=== PATIENT | male | born 1975 | race Hispanic/Latino ===

== ENCOUNTER 2024-05-29 12:47 | Emergency (ER) | payer MEDICARE ==
[~2024-05-29] VITALS: Ht 182.9 cm; Wt 136.1 kg
[~2024-05-29 12:47] MED LIST: BROMFED DM COU118 ML PO; ONDANSETRON ODT4 MG PO; PAXLOVID 150-11 EAC1 PO
[2024-05-29] MEDS: FUROSEMIDE INJ 10 MG/ML 4 ML VIAL IV ONE (14:37)
[2024-05-29 14:58] VITALS: PULSE 68; RESP 16; TEMP 98.4; O2SAT 95
[2024-05-29] MEDS: FUROSEMIDE 40 MG TAB PO ONE (15:13)
[2024-05-29] MEDS: SOD POLYSTYRENE SULFONATE SUSP 15 GM/60 ML BTL PO ONE (15:44)
== END 2024-05-29 16:57 | disposition home or self-care (01) ==
LOC: FSED 12:55
DX: R60.9 Edema, unspecified (principal); K80.20 Calculus of gallbladder without cholecystitis without obstruction; E87.5 Hyperkalemia; I12.9 Hypertensive chronic kidney disease with stage 1 through stage 4 chronic kidney disease, or unspecified chronic kidney disease; E11.22 Type 2 diabetes mellitus with diabetic chronic kidney disease; N18.9 Chronic kidney disease, unspecified; E78.5 Hyperlipidemia, unspecified; M54.9 Dorsalgia, unspecified; G89.29 Other chronic pain; Z89.512 Acquired absence of left leg below knee; R94.31 Abnormal electrocardiogram [ECG] [EKG]
CPT/HCPCS: 71250; 80048; 80076; 81003; 82553; 83880; 84484; 85025; 99284; J1940

== ENCOUNTER 2024-06-13 11:10 | Inpatient (IN) | payer MEDICARE ==
[~2024-06-13] VITALS: Ht 182.9 cm; Wt 158.8 kg
[2024-06-13 12:14] LABS: BASOPHILS # (AUTO) 0.1 (0.0-0.1); BASOPHILS % 0.6 % (0.0-1.0); EOSINOPHILS # (AUTO) 0.2 (0.0-0.4); EOSINOPHILS % 2.2 % (0.0-6.0); LYMPHOCYTES # (AUTO) 1.2 (1.0-3.2); LYMPHOCYTES % 11.1 % (18.0-39.1); MEAN CORPUSCULAR HEMOGLOBIN 30.5 pg (28-32); MEAN CORPUSCULAR HGB CONC 29.6 g/dL (31-35); MEAN CORPUSCULAR VOLUME 103.1 fL (81-99); MONOCYTES # (AUTO) 0.8 (0.2-0.8); MONOCYTES % 7.9 % (4.4-11.3); NEUTROPHILS # (AUTO) 8.2 (2.1-6.9); NEUTROPHILS % 77.8 % (38.7-80.0); PLATELET COUNT 215 x10e3/uL (140-360); RED BLOOD COUNT 2.23 x10e6/uL (4.3-5.7); RED CELL DISTRIBUTION WIDTH 13.6 % (11.7-14.4)
[2024-06-13 12:22] LABS: HEMOGLOBIN 6.8 g/dL (14.0-18.0)
[2024-06-13 12:39] LABS: ALBUMIN 2.6 g/dL (3.5-5.0); ALBUMIN/GLOBULIN RATIO 0.6 (0.8-2.0); ANION GAP 15.9 mmol/L (8-16); BILIRUBIN,TOTAL 0.5 mg/dL (0.2-1.2); CALCIUM 8.3 mg/dL (8.4-10.2); CREATININE, SERUM 6.7 mg/dL (0.72-1.25); TOTAL PROTEIN 7.3 g/dL (6.5-8.1)
[2024-06-13 12:41] LABS: POTASSIUM 5.9 mmol/L (3.5-5.1)
[2024-06-13 12:46] LABS: TROPONIN I 0.016 ng/mL (0-0.300)
[2024-06-13] MEDS: DEXTROSE 50% SYRINGE 50 ML IV STA (13:10)
[2024-06-13] MEDS: SOD POLYSTYRENE SULFONATE SUSP 15 GM/60 ML BTL PO ONE (13:10)
[2024-06-13] MEDS: SODIUM BICARBONATE 8.4% INJ 50 ML SYR IV STA (13:10)
[2024-06-13] MEDS: INSULIN REGULAR, HUMAN 100 UNIT/1 ML IV ONE (13:12)
[2024-06-13 13:27] VITALS: PULSE 82; PULSE 87; RESP 16; RESP 18; TEMP 98.3; O2SAT 99
[2024-06-13] MEDS: ALBUTEROL SULF 0.083% NEB SOLN 3 ML NEB NEB STA (13:28)
[2024-06-13] MEDS: CALCIUM GLUCONATE IV ONE (13:47)
[2024-06-13] MEDS: SODIUM CHLORIDE 0.9% IV ONE (13:47)
[2024-06-13] MEDS: Morphine 4mg INJECTION 4 MG/ML INJ IV ONE (13:47)
[2024-06-13 16:04] VITALS: BP 122/68; PULSE 86; RESP 19; TEMP 98.1; O2SAT 100
[2024-06-13 16:07] VITALS: BP 122/68; PULSE 86; RESP 19; TEMP 98.1; O2SAT 100
[2024-06-13] MEDS ORDERED: METFORMIN HCL1000 MG PO (16:35)
[2024-06-13] MEDS ORDERED: LOSARTAN POTAS100 MG PO (16:35)
[2024-06-13] MEDS ORDERED: PANTOPRAZOLE SO40 MG PO (16:35)
[2024-06-13] MEDS ORDERED: FUROSEMIDE20 MG PO (16:35)
[2024-06-13] MEDS ORDERED: AMLODIPINE BESY10 MG PO (16:35)
[2024-06-13] MEDS ORDERED: GABAPENTIN800 MG PO (16:35)
[2024-06-13] MEDS ORDERED: ATORVASTATIN CA40 MG PO (16:35)
[2024-06-13] MEDS ORDERED: OXYCODONE-ACET1 EAC3 PO (16:35)
[2024-06-13 19:30] VITALS: PULSE 85; RESP 18; O2SAT 99
[2024-06-13 20:00] VITALS: BP 140/58; PULSE 80; RESP 20; TEMP 98.1; O2SAT 100
[2024-06-13] MEDS ORDERED: OXYCODONE/ACETAMINOPHEN 5-325 1 EACH TABLET PO PRN (22:15)
[2024-06-13] MEDS: PANTOPRAZOLE SOD 40 MG TABEC PO SCH (22:39)
[2024-06-13] MEDS: GABAPENTIN 100 MG CAP PO SCH (22:40)
[2024-06-13] MEDS: AMLODIPINE BESYLATE 10 MG TAB PO SCH (22:41)
[2024-06-13] MEDS: OXYCODONE/ACETAMINOPHEN 5-325 1 EACH TABLET PO PRN (22:42)
[2024-06-13] MEDS: OXYCODONE HCL IR 5 MG TAB PO PRN (22:42)
[2024-06-13] MEDS ORDERED: ALBUTEROL SULF 0.083% NEB SOLN 3 ML NEB NEB PRN (22:45)
[2024-06-13] MEDS ORDERED: DEXTROSE 50% SYRINGE 50 ML IV PRN (22:45)
[2024-06-13] MEDS ORDERED: GUAIFENESIN/DEXTROMETHORPHAN LIQD 5 ML UDC PO PRN (22:45)
[2024-06-13] MEDS: FUROSEMIDE INJ 10 MG/ML 4 ML VIAL IV ONE (23:11)
[2024-06-14] VITALS (8 sets, daily range): BP systolic 126–144; BP diastolic 60–70; PULSE 72–92; RESP 18–21; TEMP 97.9–98.5; O2SAT 95–98
[2024-06-14] MEDS: ONDANSETRON HCL 4 MG ORAL DISINTEGRATING TAB PO PRN (03:53)
[2024-06-14 05:13] LABS: BASOPHILS # (AUTO) 0.1 (0.0-0.1); BASOPHILS % 0.6 % (0.0-1.0); EOSINOPHILS # (AUTO) 0.2 (0.0-0.4); EOSINOPHILS % 2.8 % (0.0-6.0); HEMATOCRIT 21.9 % (38.2-49.6); LYMPHOCYTES # (AUTO) 1.1 (1.0-3.2); LYMPHOCYTES % 13.2 % (18.0-39.1); MEAN CORPUSCULAR HEMOGLOBIN 30.5 pg (28-32); MEAN CORPUSCULAR HGB CONC 30.6 g/dL (31-35); MONOCYTES # (AUTO) 0.7 (0.2-0.8); MONOCYTES % 8.4 % (4.4-11.3); NEUTROPHILS # (AUTO) 6.5 (2.1-6.9); NEUTROPHILS % 74.5 % (38.7-80.0); PLATELET COUNT 215 x10e3/uL (140-360); RED CELL DISTRIBUTION WIDTH 13.6 % (11.7-14.4); WHITE BLOOD COUNT 8.65 x10e3/uL (4.8-10.8)
[2024-06-14 05:27] LABS: HEMOGLOBIN 6.7 g/dL (14.0-18.0); MEAN CORPUSCULAR VOLUME 99.5 fL (81-99)
[2024-06-14 05:30] LABS: ANION GAP 14.3 mmol/L (8-16); CALCIUM 8.2 mg/dL (8.4-10.2); CREATININE, SERUM 6.9 mg/dL (0.72-1.25)
[2024-06-14 05:40] LABS: POTASSIUM 6.3 mmol/L (3.5-5.1)
[2024-06-14] MEDS: DEXTROSE 50% SYRINGE 50 ML IV ONE (06:30)
[2024-06-14] MEDS: INSULIN REGULAR, HUMAN 100 UNIT/1 ML IV ONE (06:33)
[2024-06-14] MEDS: CALCIUM GLUC 1 G/50 ML NACL 50 ML IV ONE (06:34)
[2024-06-14] MEDS: INSULIN REGULAR, HUMAN 100 UNIT/1 ML SQ SCH (07:52)
[2024-06-14] MEDS: SOD POLYSTYRENE SULFONATE SUSP 15 GM/60 ML BTL PR ONE (07:53)
[2024-06-14] MEDS: SODIUM BICARBONATE 650 MG TAB PO SCH ×2 (07:54→14:49)
[2024-06-14] MEDS: FOLIC ACID/CYANOCOB/PYRIDOXINE TAB PO SCH (07:54)
[2024-06-14] MEDS: LACTULOSE SYRUP 20 GM/30 ML UDC PO ONE (07:54)
[2024-06-14 08:51] LABS: INR 1.15; PROTHROMBIN TIME 15.4 seconds (11.9-14.5)
[2024-06-14] MEDS ORDERED: SODIUM BICARBONATE 650 MG TAB PO SCH (09:30)
[2024-06-14] MEDS ORDERED: MANNITOL 25% 12.5GM/50 ML VIAL IV PRN (10:30)
[2024-06-14] MEDS ORDERED: SODIUM CHLORIDE 0.9% 1000ML 2,000 ML IV PRN (10:30)
[2024-06-14] MEDS ORDERED: ALBUMIN 25% 12.5GM 0.25 GM/ML BTL IV PRN (10:30)
[2024-06-14] MEDS ORDERED: LIDOCAINE HCL 1% LOCAL INJ 20 ML VIAL ONE (10:40)
[2024-06-14] MEDS ORDERED: HEPARIN SOD (PORCINE) 1000 UNIT/ML SDV ONE (10:54)
[2024-06-14] MEDS ORDERED: MIDAZOLAM HCL 2 MG/2 ML VIAL ONE (10:54)
[2024-06-14] MEDS ORDERED: SODIUM CHLORIDE 0.9% 250ML 250 ML ONE (10:54)
[2024-06-14] MEDS ORDERED: FENTANYL CITRATE/PF 100MCG/2 ML INJ ONE (10:54)
[2024-06-14 10:56] LABS: % IRON SATURATION 29 % (15-50); IRON 56 ug/dL (65-175); TOTAL IRON BINDING CAPACITY 195 ug/dL (261-478); TRANSFERRIN 139 mg/dL (174-364)
[2024-06-14] MEDS ORDERED: SODIUM CHLORIDE 0.9% 500ML 500 ML ONE (11:03)
[2024-06-14] MEDS: IRON SUCROSE 100 MG in SODIUM CHLORIDE 0.9% 100 ML IV SCH (11:03)
[2024-06-14] MEDS ORDERED: ACETAMINOPHEN 325 MG TAB PO PRN (14:45)
[2024-06-14] MEDS ORDERED: DIPHENHYDRAMINE HCL INJ 50 MG/ML VIAL IV PRN (14:45)
[2024-06-14] MEDS: DIPHENHYDRAMINE HCL INJ 50 MG/ML VIAL IV ONE (14:48)
[2024-06-14] MEDS: ACETAMINOPHEN 325 MG TAB PO PRN (14:48)
[2024-06-14] MEDS: BUMETANIDE 1 MG TAB PO SCH (14:49)
[2024-06-14] MEDS: SODIUM CHLORIDE 0.9% 250ML 250 ML IV ONE (16:36)
[2024-06-14] MEDS: ATORVASTATIN 40 MG TAB PO SCH (21:25)
[2024-06-14] MEDS: NIFEDIPINE CR 30 MG TAB PO SCH (21:25)
[2024-06-15] VITALS (8 sets, daily range): BP systolic 147–178; BP diastolic 70–83; PULSE 89–98; RESP 18–21; TEMP 97.8–98.7; O2SAT 95–100
[2024-06-15 05:40] LABS: HEPATITIS B CORE AB TOTAL Negative; HEPATITIS B SURFACE AB QUANT <3.5; HEPATITIS B SURFACE AG (P) Negative
[2024-06-15 05:41] LABS: HEPATITIS B CORE IGM (P) Negative
[2024-06-15 06:16] LABS: ALBUMIN 2.7 g/dL (3.5-5.0); ALBUMIN/GLOBULIN RATIO 0.6 (0.8-2.0); ANION GAP 15.7 mmol/L (8-16); BILIRUBIN,TOTAL 0.7 mg/dL (0.2-1.2); CALCIUM 8.1 mg/dL (8.4-10.2); CREATININE, SERUM 6.17 mg/dL (0.72-1.25); POTASSIUM 4.7 mmol/L (3.5-5.1); TOTAL PROTEIN 7.4 g/dL (6.5-8.1)
[2024-06-15 12:23] LABS: BASOPHILS % 0.3 % (0.0-1.0); EOSINOPHILS # (AUTO) 0.2 (0.0-0.4); EOSINOPHILS % 2.7 % (0.0-6.0); HEMATOCRIT 25.4 % (38.2-49.6); HEMOGLOBIN 7.9 g/dL (14.0-18.0); LYMPHOCYTES % 11.9 % (18.0-39.1); MEAN CORPUSCULAR HEMOGLOBIN 30.6 pg (28-32); MEAN CORPUSCULAR HGB CONC 31.1 g/dL (31-35); MEAN CORPUSCULAR VOLUME 98.4 fL (81-99); MONOCYTES # (AUTO) 0.7 (0.2-0.8); MONOCYTES % 8.3 % (4.4-11.3); NEUTROPHILS # (AUTO) 6.6 (2.1-6.9); NEUTROPHILS % 76.3 % (38.7-80.0); PLATELET COUNT 214 x10e3/uL (140-360); RED BLOOD COUNT 2.58 x10e6/uL (4.3-5.7); RED CELL DISTRIBUTION WIDTH 13.3 % (11.7-14.4); WHITE BLOOD COUNT 8.64 x10e3/uL (4.8-10.8)
[2024-06-15] MEDS: SODIUM CHLORIDE 0.9% 250ML 250 ML IV ONE (14:02)
[2024-06-15] MEDS: CALCIUM CARBONATE 500 MG CHEWABLE TABS PO SCH (17:36)
[2024-06-15] MEDS: HYDRALAZINE HCL 20 MG/ML VIAL IV PRN (22:56)
[2024-06-16] VITALS (10 sets, daily range): BP systolic 142–168; BP diastolic 65–76; PULSE 84–95; RESP 18–20; TEMP 97.9–98.6; O2SAT 94–97
[2024-06-16 05:42] LABS: BASOPHILS # (AUTO) 0.1 (0.0-0.1); BASOPHILS % 0.8 % (0.0-1.0); EOSINOPHILS # (AUTO) 0.2 (0.0-0.4); EOSINOPHILS % 2.5 % (0.0-6.0); HEMATOCRIT 26.5 % (38.2-49.6); HEMOGLOBIN 8.4 g/dL (14.0-18.0); LYMPHOCYTES # (AUTO) 1.2 (1.0-3.2); LYMPHOCYTES % 13.5 % (18.0-39.1); MEAN CORPUSCULAR HEMOGLOBIN 30.9 pg (28-32); MEAN CORPUSCULAR HGB CONC 31.7 g/dL (31-35); MEAN CORPUSCULAR VOLUME 97.4 fL (81-99); MONOCYTES # (AUTO) 0.8 (0.2-0.8); MONOCYTES % 9.6 % (4.4-11.3); NEUTROPHILS # (AUTO) 6.3 (2.1-6.9); NEUTROPHILS % 73.2 % (38.7-80.0); PLATELET COUNT 194 x10e3/uL (140-360); RED BLOOD COUNT 2.72 x10e6/uL (4.3-5.7); RED CELL DISTRIBUTION WIDTH 13.3 % (11.7-14.4); WHITE BLOOD COUNT 8.55 x10e3/uL (4.8-10.8)
[2024-06-16 06:17] LABS: ALBUMIN 2.5 g/dL (3.5-5.0); ALBUMIN/GLOBULIN RATIO 0.6 (0.8-2.0); ANION GAP 12.9 mmol/L (8-16); BILIRUBIN,TOTAL 0.9 mg/dL (0.2-1.2); CREATININE, SERUM 4.35 mg/dL (0.72-1.25); POTASSIUM 3.9 mmol/L (3.5-5.1); TOTAL PROTEIN 6.9 g/dL (6.5-8.1)
[2024-06-16] MEDS: SODIUM CHLORIDE 0.9% 1000ML 2,000 ML ONE (07:45)
[2024-06-16] MEDS: SODIUM CHLORIDE 0.9% 250ML 250 ML ONE ×2 (07:45→07:46)
[2024-06-16] MEDS: SODIUM CHLORIDE 0.9% 250ML 250 ML IV ONE ×2 (07:45)
[2024-06-16] MEDS: MANNITOL 25% 12.5GM/50ML 100 ML ONE (07:45)
[2024-06-16] MEDS: CALCITRIOL 0.25 MCG CAP PO SCH (09:52)
[2024-06-16] MEDS: HEPARIN SOD (PORCINE) 1000 UNIT/ML SDV IV PRN (12:20)
[2024-06-16] MEDS: DOCUSATE SODIUM 100 MG CAP PO PRN (20:21)
[2024-06-16] MEDS: ONDANSETRON HCL INJ 2MG/ML 2ML 2 MG/ML VIAL IV PRN (20:22)
[2024-06-16] MEDS: MELATONIN 3 MG TAB PO PRN (23:20)
[2024-06-17] VITALS (7 sets, daily range): BP systolic 146–173; BP diastolic 64–85; PULSE 81–94; RESP 18–20; TEMP 97.7–98.6; O2SAT 92–97
[2024-06-17] MEDS: Morphine 4mg INJECTION 4 MG/ML INJ IV PRN (04:06)
[2024-06-17 07:11] LABS: CALCIUM 8.5 mg/dL (8.4-10.2); CREATININE, SERUM 3.56 mg/dL (0.72-1.25)
[2024-06-18] VITALS: BP 165/79; PULSE 92; RESP 18; TEMP 98.7; O2SAT 92
[2024-06-18 04:00] VITALS: BP 167/70; PULSE 88; RESP 20; TEMP 98.8; O2SAT 94
[2024-06-18 07:34] VITALS: PULSE 98; RESP 18; O2SAT 96
[2024-06-18 08:38] VITALS: BP 166/76; PULSE 85; RESP 20; TEMP 98.2; O2SAT 95
[2024-06-18 12:36] VITALS: BP 163/70; PULSE 75; RESP 20; TEMP 98.8; O2SAT 100
[2024-06-18] MEDS: METOPROLOL SUCCINATE 25 MG TAB XL PO SCH (14:41)
[2024-06-18] MEDS ORDERED: NIFEDIPINE ER30 M1 PO (14:49)
[2024-06-18] MEDS ORDERED: TUMS200 MG PO (14:49)
[2024-06-18] MEDS ORDERED: TOPROL XL25 MG PO (14:49)
[2024-06-18] MEDS ORDERED: SODIUM BICARBO650 MG PO (14:49)
[2024-06-18] MEDS ORDERED: Calcitriol PO (14:49)
[2024-06-18] MEDS ORDERED: PANTOPRAZOLE SO40 MG PO (14:49)
[2024-06-18] MEDS ORDERED: ONDANSETRON ODT4 MG PO (14:49)
[2024-06-18] MEDS ORDERED: BUMETANIDE1 MG PO (14:49)
[2024-06-18 15:28] LABS: CHOL/HDL RATIO 2.7 (3.9-4.7)
[2024-06-18 16:59] VITALS: BP 175/74; PULSE 81; RESP 20; TEMP 99; O2SAT 95
== END 2024-06-18 17:40 | disposition home or self-care (01) | DRG 673 ==
LOC: ER 11:28 → ERHOLD 13:07 → MED/SURG2 15:19
PROVIDERS: ADMIT Internal Medicine; ATTEND Internal Medicine
PROC: 0JH63XZ Insertion of Tunneled Vascular Access Device into Chest Subcutaneous Tissue and Fascia, Percutaneous Approach (ICD-10-PCS; 2024-06-14)
PROC: 5A1D70Z Performance of Urinary Filtration, Intermittent, Less than 6 Hours Per Day (ICD-10-PCS; 2024-06-14)
PROC: 30233N1 Transfusion of Nonautologous Red Blood Cells into Peripheral Vein, Percutaneous Approach (ICD-10-PCS; 2024-06-14)
PROC: 02H633Z Insertion of Infusion Device into Right Atrium, Percutaneous Approach (ICD-10-PCS; 2024-06-14)
PROC: 03180ZD Bypass Left Brachial Artery to Upper Arm Vein, Open Approach (ICD-10-PCS; principal; 2024-06-17 11:48)
DX: E11.22 Type 2 diabetes mellitus with diabetic chronic kidney disease (principal); I13.2 Hypertensive heart and chronic kidney disease with heart failure and with stage 5 chronic kidney disease, or end stage renal disease; I50.33 Acute on chronic diastolic (congestive) heart failure; J81.0 Acute pulmonary edema; E87.20 Acidosis, unspecified; J81.1 Chronic pulmonary edema; Z68.42 Body mass index [BMI] 45.0-49.9, adult; N18.6 End stage renal disease; N17.9 Acute kidney failure, unspecified; E88.09 Other disorders of plasma-protein metabolism, not elsewhere classified; E83.51 Hypocalcemia; E11.51 Type 2 diabetes mellitus with diabetic peripheral angiopathy without gangrene; E11.65 Type 2 diabetes mellitus with hyperglycemia; E66.01 Morbid (severe) obesity due to excess calories; E78.5 Hyperlipidemia, unspecified; M54.9 Dorsalgia, unspecified; E87.5 Hyperkalemia; Z89.512 Acquired absence of left leg below knee; Z89.421 Acquired absence of other right toe(s); Z83.3 Family history of diabetes mellitus
CPT/HCPCS: 36415; 36558; 71045; 74470; 76770; 76937; 77001; 80048; 80053; 80061; 82728; 82948; 83036; 83540; 83690; 83880; 84466; 84484; 85025; 85610; 86704; 86705; 86706; 86850; 86900; 86920; 87340; 93005; 93306; 94640; 94799; 99252; 99284; J0360; J0612; J0690; J1200; J1644; J1756; J1940; J2003; J2150; J2250; J2270; J2405; J7030; J7040; J7050; J7799; P9016; Q0162

== ENCOUNTER 2025-01-30 22:02 | Emergency (ER) | payer MEDICARE ==
[~2025-01-30] VITALS: Ht 182.9 cm; Wt 127.0 kg
[~2025-01-30 22:02] MED LIST changes: +AMLODIPINE BESY10 MG PO; +ATORVASTATIN CA40 MG PO; +BUMETANIDE1 MG PO; +Calcitriol PO; +FUROSEMIDE20 MG PO; +GABAPENTIN800 MG PO; +LOSARTAN POTAS100 MG PO; +METFORMIN HCL1000 MG PO; +NIFEDIPINE ER30 M1 PO; +OXYCODONE-ACET1 EAC3 PO; +PANTOPRAZOLE SO40 MG PO; +SODIUM BICARBO650 MG PO; +TOPROL XL25 MG PO; +TUMS200 MG PO
[2025-01-30] MEDS: HYDRALAZINE HCL 20 MG/ML VIAL IV STA (22:22)
[2025-01-30 22:45] LABS: BASOPHILS % 0.3 % (0.0-1.0); EOSINOPHILS % 2.8 % (0.0-6.0); EST GLOMERULAR FILTRATION RATE 6.0 ML/MIN (>=60); LYMPHOCYTES % 13.3 % (18.0-39.1); MONOCYTES % 6.2 % (4.4-11.3); NEUTROPHILS % 77.0 % (38.7-80.0); RED CELL DISTRIBUTION WIDTH 14.1 % (11.7-14.4)
[2025-01-30 22:52] LABS: LEUKOCYTE ESTERASE ,URINE NEGATIVE (NEGATIVE); PROTEIN,URINE DIPSTICK >=300 (NEGATIVE); URINE UROBILINOGEN 0.2 mg/dL (0.2 - 1)
[2025-01-30 23:03] LABS: EPITHELIAL CELLS,URINE FEW /LPF; WBC,URINE (MAN) 21-50 /HPF (0-5)
[2025-01-30] MEDS: LOSARTAN POTASSIUM 100 MG TAB PO ONE (23:17)
[2025-01-30] MEDS: NIFEDIPINE CR 30 MG TAB PO ONE (23:18)
[2025-01-30] MEDS: METOPROLOL SUCCINATE 50 MG TAB XL PO ONE (23:18)
[2025-01-30 23:21] VITALS: PULSE 94; RESP 16; TEMP 99
[2025-01-31] MEDS ORDERED: ACETAMINOPHEN 325 MG TAB ONE
[2025-01-31] MEDS ORDERED: CEFDINIR300 MG PO (00:01)
[2025-01-31] MEDS: ACETAMINOPHEN 325 MG TAB PO ONE (00:08)
[2025-01-31 00:36] VITALS: BP 189/69; PULSE 92; RESP 14; TEMP 98.5; O2SAT 99
== END 2025-01-31 00:47 | disposition home or self-care (01) ==
LOC: ER 22:10
DX: R10.9 Unspecified abdominal pain (principal); K80.20 Calculus of gallbladder without cholecystitis without obstruction; I12.0 Hypertensive chronic kidney disease with stage 5 chronic kidney disease or end stage renal disease; E11.22 Type 2 diabetes mellitus with diabetic chronic kidney disease; N18.6 End stage renal disease; Z99.2 Dependence on renal dialysis; E78.5 Hyperlipidemia, unspecified; Z91.148 Patient's other noncompliance with medication regimen for other reason; M54.9 Dorsalgia, unspecified; G89.29 Other chronic pain; E66.01 Morbid (severe) obesity due to excess calories
CPT/HCPCS: 36415; 71045; 74176; 80053; 81001; 83690; 84484; 85025; 87086; 87186; 93005; 99284; J0360; J0696